=== PATIENT | female | born 1955 | race Hispanic/Latino ===

== ENCOUNTER 2017-02-04 11:24 | Emergency (ER) | payer MEDICAID ==
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
[2017-02-04 15:02] LABS: Basophils % (Auto) 0.6 % (0.0-1.8); Eosinophils % (Auto) 0.9 % (0.0-4.3); Hematocrit 45.5 % (30.3-42.9); Hemoglobin 15.4 gm/dl (10.1-14.3); Mean Corpuscular HGB Conc 34 % (30-34); Mean Corpuscular Hemoglobin 31 pg (28-32); Mean Corpuscular Volume 91 fl (79-97); Platelet Count 299 K/mm3 (140-440); Red Blood Count 4.99 M/mm3 (3.65-5.03); Red Cell Distribution Width 16.6 % (13.2-15.2); White Blood Count 10.6 K/mm3 (4.5-11.0)
[2017-02-04 15:12] LABS: INR 0.91 (0.87-1.13)
[2017-02-04 15:13] LABS: Partial Thromboplastin Time 31.7 Sec. (24.2-36.6)
--- NOTE | 2017-02-04 15:19 | Cat Scan Report ---
FINAL REPORT EXAM: CT HEAD/BRAIN WO CON HISTORY: headache TECHNIQUE: CT of the head and cervical spine was performed without intravenous contrast. Reconstructions were included in the coronal and sagittal planes. PRIORS: None. FINDINGS: Head: The ventricles are normal in shape and position. The ventricles are nondilated. No intracranial hemorrhage, mass, mass effect, midline shift or evidence of acute ischemic infarct. The basilar cisterns are patent. The paranasal sinuses are clear. The extracranial soft tissues demonstrate no abnormality. The calvarium is intact. The orbits are intact. The mastoid air cells are clear. Cervical spine: No cervical spine fracture or subluxation. The prevertebral soft tissues are normal. Mild multilevel degenerative changes of the cervical spine are seen with multilevel mild neural foraminal narrowing. No spinal canal stenosis. Severe emphysematous changes are seen in the lung apices with biapical pleural/parenchymal scarring. IMPRESSION: 1. No acute intracranial abnormality. 2. No acute cervical spine abnormality. Mild multilevel degenerative changes of the cervical spine with multilevel neural foraminal narrowing.
--- NOTE | 2017-02-04 15:19 | Cat Scan Report ---
FINAL REPORT EXAM: CT CERVICAL SPINE WO CON HISTORY: fall, tilngling l arm TECHNIQUE: CT of the head and cervical spine was performed without intravenous contrast. Reconstructions were included in the coronal and sagittal planes. PRIORS: None. FINDINGS: Head: The ventricles are normal in shape and position. The ventricles are nondilated. No intracranial hemorrhage, mass, mass effect, midline shift or evidence of acute ischemic infarct. The basilar cisterns are patent. The paranasal sinuses are clear. The extracranial soft tissues demonstrate no abnormality. The calvarium is intact. The orbits are intact. The mastoid air cells are clear. Cervical spine: No cervical spine fracture or subluxation. The prevertebral soft tissues are normal. Mild multilevel degenerative changes of the cervical spine are seen with multilevel mild neural foraminal narrowing. No spinal canal stenosis. Severe emphysematous changes are seen in the lung apices with biapical pleural/parenchymal scarring. IMPRESSION: 1. No acute intracranial abnormality. 2. No acute cervical spine abnormality. Mild multilevel degenerative changes of the cervical spine with multilevel neural foraminal narrowing.
[2017-02-04 16:13] LABS: Anion Gap 21 mmol/L; BUN/Creatinine Ratio 26; Blood Urea Nitrogen 13 mg/dL (7-17); Calcium 9.1 mg/dL (8.4-10.2); Carbon Dioxide 26 mmol/L (22-30); Chloride 96.9 mmol/L (98-107); Glucose 93 mg/dL (65-100); Sodium 139 mmol/L (137-145)
[2017-02-04] MEDS ORDERED: ULTRAM PO ONE (17:11)
[2017-02-04 19:03] VITALS: BP 125/70
== END 2017-02-04 17:25 | disposition home or self-care (01) ==
LOC: ED 11:24
DX: M47.812 Spondylosis without myelopathy or radiculopathy, cervical region (principal); R20.2 Paresthesia of skin; I10 Essential (primary) hypertension; J45.909 Unspecified asthma, uncomplicated; J44.9 Chronic obstructive pulmonary disease, unspecified; G89.29 Other chronic pain; E78.5 Hyperlipidemia, unspecified; F17.200 Nicotine dependence, unspecified, uncomplicated; Z88.6 Allergy status to analgesic agent; Z88.8 Allergy status to other drugs, medicaments and biological substances
CPT/HCPCS: 36415; 70450; 72125; 80048; 84484; 85025; 85610; 85730; 93005; 93010; 99284

== ENCOUNTER 2019-03-04 17:52 | Emergency (ER) | payer MEDICAID ==
[2019-03-04 19:07] VITALS: BP 111/68
--- NOTE | 2019-03-04 19:09 | Event Note ---
ED Screening Note Date of service: 03/04/19 Time: 19:06 ED Screening Note: 64 yo f presents with left sided rib pain x fall at home yesterday in living room This initial assessment/diagnostic orders/clinical plan/treatment(s) is/are subject to change based on patients health status, clinical progression and re- assessment by fellow clinical providers in the ED. Further treatment and workup at subsequent clinical providers discretion. Patient/guardian urged not to elope from the ED as their condition may be serious if not clinically assessed and managed. Initial orders include: rib detail xray
--- NOTE | 2019-03-04 20:32 | XRay Report ---
PA CHEST AND BILATERAL RIB DETAIL 4 VIEWS INDICATION / CLINICAL INFORMATION: Fall yesterday with chest wall pain. COMPARISON: None available. FINDINGS: The heart size and pulmonary vasculature are normal. The lungs are hyperinflated with mild diffuse ch ronic interstitial disease present, more prominent in the lower lung zones. The findings are characte ristic of COPD. There are surgical changes in the lumbar spine. I see no evidence of pneumothorax or pleural effusion. There are fractures of the left fourth through sixth ribs posteriorly which appear old I do not identify an acute rib fracture or other abnormality . Signer Name: Jered Jose MD Signed: 03/04/2019 8:28 PM Workstation Name: [id number]
[2019-03-04] MEDS ORDERED: MORPHINE 2 MG/1 ML INJ IV ONE (21:48)
[2019-03-04] MEDS ORDERED: HYDROmorphone 1 MG/1 ML INJ IV ONE (21:52)
[2019-03-04 22:23] LABS: Basophils # (Auto) 0.1 K/mm3 (0.0-0.1); Basophils % (Auto) 0.5 % (0.0-1.8); Eosinophils # (Auto) 0.1 K/mm3 (0.0-0.4); Eosinophils % (Auto) 0.7 % (0.0-4.3); Hematocrit 39.8 % (30.3-42.9); Lymphocytes % (Auto) 12.6 % (13.4-35.0); Mean Corpuscular HGB Conc 33 % (30-34); Mean Corpuscular Volume 93 fl (79-97); Monocytes # (Auto) 1.3 K/mm3 (0.0-0.8); Monocytes % (Auto) 8.1 % (0.0-7.3); Platelet Count 315 K/mm3 (140-440); Red Blood Count 4.28 M/mm3 (3.65-5.03); Red Cell Distribution Width 15.5 % (13.2-15.2)
[2019-03-04 22:33] LABS: BUN/Creatinine Ratio 30; Blood Urea Nitrogen 15 mg/dL (7-17); Calcium 9.2 mg/dL (8.4-10.2); Hemolysis Index 15
--- NOTE | 2019-03-04 22:40 | XRay Report ---
LEFT HAND 3 VIEW(S) INDICATION / CLINICAL INFORMATION: left hand pain s/p fall COMPARISON: None available. FINDINGS: BONES / JOINT(S): No acute fracture or subluxation. No significant arthritis. No osseous erosions. SOFT TISSUES: No significant abnormality. ADDITIONAL FINDINGS: None. Signer Name: Radha Butler MD Signed: 03/04/2019 10:36 PM Workstation Name: [id number]
--- NOTE | 2019-03-04 23:20 | Emergency Department Report ---
ED Fall HPI - General Chief Complaint: Fall Stated Complaint: RIBS/HAND INJURY Time Seen by Provider: 03/04/19 21:46 Source: patient Mode of arrival: Wheelchair - History of Present Illness Initial Comments: This is a 64-year-old female nontoxic, well nourished in appearance, no acute signs of distress presents to the ED with c/o of left lateral rib pain status post fall that occurred 2 days ago. Patient stated she had a trip and fall and hit her left lateral rib area against the sofa. Patient also stated he had her hand to the sofa as well of the left side. Patient denies any trauma to the head, back or neck area. Patient otherwise denies any other complaints or pain. Patient denies any shortness of breath, fever, chills, nausea, vomiting, headache, stiff neck, numbness or tingling. Stated has history of left sided rib fractures. MD Complaint: fall -: days(s) (2) Fall From: standing Place Fall Occurred: home Loss of Consciousness: none Prolonged Down Time?: no Symptoms Prior to Fall: none Location: chest Location - Extremities: Left: Hand Severity: mild Severity scale (0 -10): 8 Quality: aching Context: tripped/slipped Associated Symptoms: denies. denies: headache, neck pain, numbness, weakness, chest paint, shortness of breath, abdominal pain, hematuria, unable to walk, lightheaded, vertigo, confusion - Related Data Home Medications Medication Instructions Recorded Confirmed Last Taken Carisoprodol [Soma] 1 tab PO BID 04/10/13 02/02/16 10/06/13 Valsartan [Diovan] 80 mg PO QHS 04/10/13 02/02/16 10/07/13 ALPRAZolam [Xanax] 1 mg PO HS PRN 10/08/13 02/02/16 10/06/13 Desloratadine/Pseudoephedrine 1 each PO DAILY 02/02/16 02/02/16 Unknown [Clarinex-D 12 Hour Tablet] Gabapentin [Neurontin] 1 tab PO DAILY 02/02/16 02/02/16 Unknown guaiFENesin [Mucinex] 600 mg PO DAILY 02/02/16 02/02/16 Unknown Previous Rx's Medication Instructions Recorded Last Taken Type HYDROcodone/APAP 7.5-325 [[place] 1 tab PO BID #7 tablet 11/02/13 Unknown Rx 7.5-325 mg TAB] ALBUTEROL Inhaler (OR & NICU) 2 puff IH QID PRN #1 inhalation 05/02/14 Unknown Rx [ProAir HFA Inhaler] Prednisone [Prednisone 5 mg (6-Day 5 mg PO .TAPER #1 tab.ds.pk 05/02/14 Unknown Rx Pack, 21 Tabs)] ALBUTEROL NEB's [Proventil 0.083% 2.5 mg IH TID PRN #1 box 02/02/16 Unknown Rx NEBS] Azithromycin [Zithromax Z-BERNARD] 1 dose PO DAILY 5 Days tab 02/02/16 Unknown Rx Benzonatate [Tessalon Perles] 100 mg PO Q8HR PRN #30 capsule 02/02/16 Unknown Rx Nebulizer Accessories [Aeroneb Go] 1 each MC PRN PRN #1 each 02/02/16 Unknown Rx Nebulizer [Aeroneb Go Nebulizer] 1 each MC PRN PRN #1 each 02/02/16 Unknown Rx Prednisone [predniSONE 10 mg 10 mg PO .TAPER #1 tab.ds.pk 02/02/16 Unknown Rx (6-Day Pack, 21 Tabs)] traMADol [Ultram] 50 mg PO Q6HR PRN #14 tablet 02/04/17 Unknown Rx Acetaminophen/Codeine [Tylenol 1 tab PO Q6H PRN #12 tab 03/05/19 Unknown Rx /Codeine # 3 tab] Allergies Allergy/AdvReac Type Severity Reaction Status Date / Time aspirin Allergy Swelling Verified 03/04/19 17:56 morphine Allergy Vomiting Verified 03/04/19 17:56 nalbuphine HCl [From Nubain] Allergy Unknown Verified 03/04/19 17:56 pentazocine lactate Allergy Hives Verified 03/04/19 17:56 [From Talwin] diphenhydramine HCl AdvReac ELEVATES Verified 03/04/19 17:56 [From Benadryl] B/P ED Review of Systems ROS: Stated complaint: RIBS/HAND INJURY Other details as noted in HPI Constitutional: denies: chills, fever Eyes: denies: eye pain, eye discharge, vision change ENT: denies: ear pain, throat pain Respiratory: denies: cough, shortness of breath, wheezing Cardiovascular: other (left lateral rib pain). denies: chest pain, palpitations Endocrine: no symptoms reported Gastrointestinal: denies: abdominal pain, nausea, diarrhea Genitourinary: denies: urgency, dysuria, discharge Musculoskeletal: denies: back pain, joint swelling, arthralgia Skin: denies: rash, lesions Neurological: denies: headache, weakness, paresthesias Psychiatric: denies: anxiety, depression Hematological/Lymphatic: denies: easy bleeding, easy bruising ED Past Medical Hx - Past Medical History Previous Medical History?: Yes Hx Hypertension: Yes Hx Heart Attack/AMI: No Hx Congestive Heart Failure: No Hx Diabetes: No Hx Deep Vein Thrombosis: No Hx Pulmonary Embolism: No Hx Liver Disease: Yes Hx Sickle Cell Disease: No Hx Arthritis: No Hx Psychiatric Treatment: Yes (anxiety) Hx Asthma: Yes Hx COPD: Yes Hx Tuberculosis: No Hx HIV: No Additional medical history: Chronic pain, vertigo. high cholesterol - Surgical History Past Surgical History?: Yes Hx Coronary Stent: No Hx Open Heart Surgery: No Hx Pacemaker: No Hx Internal Defibrillator: No Hx Cholecystectomy: No Hx Appendectomy: No Hx Breast Surgery: No Additional Surgical History: back surgery X 2. R foot surgery, Bladder tack, Right hand surgery. CATARACT SURGERY. HYSTERECTOMY - Social History Smoking Status: Former Smoker Substance Use Type: None - Medications Home Medications: Home Medications Medication Instructions Recorded Confirmed Last Taken Type Carisoprodol [Soma] 1 tab PO BID 04/10/13 02/02/16 10/06/13 History Valsartan [Diovan] 80 mg PO QHS 04/10/13 02/02/16 10/07/13 History ALPRAZolam [Xanax] 1 mg PO HS PRN 10/08/13 02/02/16 10/06/13 History HYDROcodone/APAP 7.5-325 [[place] 1 tab PO BID #7 tablet 11/02/13 02/02/16 Unknown Rx 7.5-325 mg TAB] ALBUTEROL Inhaler (OR & NICU) 2 puff IH QID PRN #1 inhalation 05/02/14 02/02/16 Unknown Rx [ProAir HFA Inhaler] Prednisone [Prednisone 5 mg (6-Day 5 mg PO .TAPER #1 tab.ds.pk 05/02/14 02/02/16 Unknown Rx Pack, 21 Tabs)] ALBUTEROL NEB's [Proventil 0.083% 2.5 mg IH TID PRN #1 box 02/02/16 Unknown Rx NEBS] Azithromycin [Zithromax Z-BERNARD] 1 dose PO DAILY 5 Days tab 02/02/16 Unknown Rx Benzonatate [Tessalon Perles] 100 mg PO Q8HR PRN #30 capsule 02/02/16 Unknown Rx Desloratadine/Pseudoephedrine 1 each PO DAILY 02/02/16 02/02/16 Unknown History [Clarinex-D 12 Hour Tablet] Gabapentin [Neurontin] 1 tab PO DAILY 02/02/16 02/02/16 Unknown History Nebulizer Accessories [Aeroneb Go] 1 each MC PRN PRN #1 each 02/02/16 Unknown Rx Nebulizer [Aeroneb Go Nebulizer] 1 each MC PRN PRN #1 each 02/02/16 Unknown Rx Prednisone [predniSONE 10 mg 10 mg PO .TAPER #1 tab.ds.pk 02/02/16 Unknown Rx (6-Day Pack, 21 Tabs)] guaiFENesin [Mucinex] 600 mg PO DAILY 02/02/16 02/02/16 Unknown History traMADol [Ultram] 50 mg PO Q6HR PRN #14 tablet 02/04/17 Unknown Rx Acetaminophen/Codeine [Tylenol 1 tab PO Q6H PRN #12 tab 03/05/19 Unknown Rx /Codeine # 3 tab] ED Physical Exam - General Limitations: No Limitations General appearance: alert, in no apparent distress - Head Head exam: Present: atraumatic, normocephalic - Eye Eye exam: Present: normal appearance - Neck Neck exam: Present: normal inspection, full ROM. Absent: tenderness, meningismus, lymphadenopathy - Respiratory Respiratory exam: Present: normal lung sounds bilaterally, chest wall tenderness (left lateral rib). Absent: respiratory distress, wheezes, rales, rhonchi, stridor, accessory muscle use, decreased breath sounds, prolonged expiratory - Cardiovascular Cardiovascular Exam: Present: regular rate, normal rhythm, normal heart sounds. Absent: bradycardia, tachycardia, irregular rhythm, systolic murmur, diastolic murmur, rubs, gallop - GI/Abdominal GI/Abdominal exam: Present: soft, normal bowel sounds. Absent: distended, tenderness, guarding, rebound, rigid, diminished bowel sounds - Extremities Exam Extremities exam: Present: normal inspection, full ROM, tenderness, normal capillary refill. Absent: joint swelling - Expanded Upper Extremity Exam Left General: Present: normal inspection Shoulder Exam: Present: normal inspection, full ROM. Absent: tenderness, swelling Upper Arm exam: Present: normal inspection, full ROM. Absent: tenderness, swelling Elbow exam: Present: normal inspection, full ROM. Absent: tenderness, swelling Forearm Wrist exam: Present: normal inspection, full ROM. Absent: tenderness, swelling Hand Wrist exam: Present: normal inspection, full ROM, tenderness, abrasion, ecchymosis. Absent: swelling, laceration, deformity, crepidus, dislocation, erythema, amputation, nail avulsion, subungual hematoma Hand L/R Back: 1 - pain here Vascular: Present: vascular compromise, normal capillary refill - Back Exam Back exam: Present: normal inspection, full ROM. Absent: tenderness, CVA tenderness (R), CVA tenderness (L), muscle spasm, paraspinal tenderness, vertebral tenderness, rash noted - Neurological Exam Neurological exam: Present: alert, oriented X3, normal gait - Psychiatric Psychiatric exam: Present: normal affect, normal mood - Skin Skin exam: Present: warm, dry, intact, normal color. Absent: rash ED Course Vital Signs 03/04/19 19:05 Temperature 97.7 F Pulse Rate 79 Respiratory 24 Rate Blood Pressure 111/68 O2 Sat by Pulse 89 Oximetry - Reevaluation(s) Reevaluation #1: 03/04/19 23:24 Patient is speaking in full sentences with no signs of distress noted. ED Medical Decision Making - Lab Data Result diagrams: 03/04/19 21:53 03/04/19 21:53 - Medical Decision Making 64-year-old female that presents with left rib contusion. Patient is stable and was examined by me. Labs obtained. CT with contrast of the chest has been obtained and dictated by radiologist with no acute findings. Vital signs are stable. Patient received Dilaudid in the ER which she stated his symptoms are improving subsided. Patient be discharged with Tylenol with codeine for pain. Stated that family member will drive her home after discharge due to possible drowsiness. Patient was instructed to Follow-up with a primary care doctor in 3-5 days or if symptoms worsen and continue return to emergency room as soon as possible. At time of discharge, the patient does not seem toxic or ill in appearance. No acute signs of distress noted. Patient agrees to discharge treatment plan of care. No further questions noted by the patient. Critical care attestation.: If time is entered above; I have spent that time in minutes in the direct care of this critically ill patient, excluding procedure time. ED Disposition Clinical Impression: Contusion of left hand Qualifiers: Encounter type: initial encounter Qualified Code(s): S60.222A - Contusion of left hand, initial encounter Contusion of left chest wall Qualifiers: Encounter type: initial encounter Qualified Code(s): S20.212A - Contusion of left front wall of thorax, initial encounter Rib contusion Qualifiers: Encounter type: initial encounter Laterality: left Qualified Code(s): S20.212A - Contusion of left front wall of thorax, initial encounter Fall Qualifiers: Encounter type: initial encounter Qualified Code(s): W19.XXXA - Unspecified fall, initial encounter Disposition: DC-01 TO HOME OR SELFCARE Is pt being admited?: No Does the pt Need Aspirin: No Condition: Stable Instructions: Fall Prevention for Older Adults (ED) Additional Instructions: Follow-up with a primary care doctor in 3-5 days or if symptoms worsen and continue return to emergency room as soon as possible. Do not operate any machinery while taking Tylenol with codeine as this may cause drowsiness. Prescriptions: Acetaminophen/Codeine [Tylenol /Codeine # 3 tab] 1 tab PO Q6H PRN #12 tab PRN Reason: Pain , Severe (7-10) Referrals: PRIMARY CARE, [Primary Care Provider] - 3-5 Days JAVIER DOUGLAS MD [Staff Physician] - 3-5 Days [facility] [Outside] - 3-5 Days [facility] [Outside] - 3-5 Days
[2019-03-05] MEDS ORDERED: ONDANSETRON 4 MG/2 ML INJ IV ONE (00:42)
--- NOTE | 2019-03-05 01:49 | Cat Scan Report ---
CT CHEST WITH CONTRAST INDICATION / CLINICAL INFORMATION: rib pain s/p fall. TECHNIQUE: Axial CT images were obtained through the chest after 100 mL Omnipaque [address]. [address] scans at this location are performed using CT dose reduction for ALARA by means of automated exposure contr ol. COMPARISON: CT dated 05/23/09 FINDINGS: HEART: No acute abnormality. Mild LAD calcification. THORACIC AORTA: No significant abnormality. MEDIASTINUM and GLADYS: No significant abnormality. LUNGS: No acute air space or interstitial disease. Lungs are hyperinflated. Right middle lobe and bi apical subpleural scarring. PLEURA: No significant pleural effusion. No pneumothorax. ADDITIONAL FINDINGS: None. UPPER ABDOMEN: No significant abnormality. SKELETAL SYSTEM: Several healed left rib fractures. No definite acute, displaced rib fracture noted. IMPRESSION: 1. No acute abnormality. 2. Findings of COPD but no acute pulmonary or pleural findings. Signer Name: Radha Butler MD Signed: 03/05/2019 1:44 AM Workstation Name: [id number]
== END 2019-03-05 02:10 | disposition home or self-care (01) ==
LOC: ED 17:52
DX: S20.212A Contusion of left front wall of thorax, initial encounter (principal); S60.222A Contusion of left hand, initial encounter; I10 Essential (primary) hypertension; F41.9 Anxiety disorder, unspecified; J44.9 Chronic obstructive pulmonary disease, unspecified; E78.00 Pure hypercholesterolemia, unspecified; G89.29 Other chronic pain; Z88.6 Allergy status to analgesic agent; Z88.5 Allergy status to narcotic agent; Z88.8 Allergy status to other drugs, medicaments and biological substances; Z79.899 Other long term (current) drug therapy; Z90.710 Acquired absence of both cervix and uterus; Z98.890 Other specified postprocedural states; Z87.891 Personal history of nicotine dependence; W01.198A Fall on same level from slipping, tripping and stumbling with subsequent striking against other object, initial encounter; Y93.89 Activity, other specified; Y92.89 Other specified places as the place of occurrence of the external cause; Y99.8 Other external cause status
CPT/HCPCS: 36415; 71111; 71260; 73130; 80048; 85025; 96374; 96375; 99284; J1170; J2405; Q9967